=== PATIENT | female | born 1970 | race African-American/Black ===

== ENCOUNTER 2016-12-16 20:49 | Emergency (ER) | payer MEDICAID ==
[~2016-12-16] VITALS: Ht 157.5 cm; Wt 87.1 kg
[~2016-12-16 20:49] MED LIST: CEPH-37 PO; DOCU-94 PO; HYDR-1421 PO; IBU100LQ PO
[2016-12-16] MEDS ORDERED: diphenhdrAMINE HCL 25 MG CAP PO ONE ×2 (21:40→22:00)
[2016-12-17] MEDS ORDERED: diphenhdrAMINE HCL 50 MG/1 ML VL ONE (00:47)
[2016-12-17] MEDS ORDERED: methylPREDNISolone SOD SUCC 125 MG/2 ML VL ONE (00:47)
[2016-12-17] MEDS ORDERED: diphenhdrAMINE HCL 50 MG/1 ML VL IV ONE (01:00)
[2016-12-17] MEDS ORDERED: FAMOTIDINE (10MG/ML) 2ML VL IV ONE (01:00)
[2016-12-17] MEDS ORDERED: methylPREDNISolone SOD SUCC 125 MG/2 ML VL IV ONE (01:00)
[2016-12-17 01:51] LABS: Basophils # (auto) 0.1 uL; Basophils % (auto) 0.5 % (0.0-2.0); Eosinophils # (auto) 0.7 uL; Eosinophils % (auto) 6.7 % (0.0-7.0); Hemoglobin 12.6 g/dL (12.2-16.2); Lymphocytes # (auto) 2.4 uL; Lymphocytes % (auto) 23.5 % (10.0-50.0); Mean Corpuscular Hemoglobin 28.3 pg (28.0-32.0); Mean Corpuscular Hgb Conc. 32.3 g/dL (32.0-36.0); Mean Corpuscular Volume 87.7 fL (80.0-100.0); Mean Platelet Volume 9.4 fL (7.4-10.4); Monocytes # (auto) 0.9 uL; Monocytes % (auto) 8.9 % (0.0-12.0); Neutrophils # (auto) 6.1 uL; Neutrophils % (auto) 60.4 % (37.0-80.0); Platelet Count (auto) 341 10^3/uL (140-450); Red Cell Distribution Width 13.9 % (11.6-16.0); White Blood Cell 10.2 10^3/uL (4.4-10.8)
[2016-12-17 02:05] LABS: Albumin 4.1 g/dL (3.4-5.0); BUN/Creatinine Ratio 16.3; Calcium 9.1 mg/dL (8.5-10.1); Potassium 3.8 mmol/L (3.5-5.1)
[2016-12-17 02:08] LABS: Bilirubin, Total 0.4 mg/dL (0.2-1.0); Total Protein 7.9 g/dL (6.4-8.2)
[2016-12-17 02:28] LABS: Urine Bilirubin Negative (Negative); Urine Color Yellow (Yellow); Urine Glucose Normal (Normal); Urine Ketone Negative (Negative); Urine Nitrite Negative (Negative); Urine RBC 4 /hpf (0 - 4); Urine Squamous Epithelial Cell FEW /hpf (<5); Urine pH 6.5 (5.0-8.0)
[2016-12-17 02:29] LABS: Urine Blood 1+ /uL (Negative)
[2016-12-17] MEDS ORDERED: EPINEPHrine HCL 1 MG/1 ML AMP SC ONE (04:00)
[2016-12-17] MEDS ORDERED: SODIUM CHLORIDE 0.9% 1,000 ML IV ONE (04:30)
[2016-12-17 06:38] VITALS: BP 144/72
== END 2016-12-17 07:00 | disposition home or self-care (01) ==
LOC: ER 20:49
DX: T78.40XA Allergy, unspecified, initial encounter (principal); T50.905A Adverse effect of unspecified drugs, medicaments and biological substances, initial encounter; T78.3XXA Angioneurotic edema, initial encounter; H57.8 Other specified disorders of eye and adnexa; Y92.89 Other specified places as the place of occurrence of the external cause; I10 Essential (primary) hypertension
CPT/HCPCS: 36415; 80053; 81001; 85025; 96361; 96372; 96374; 96375; 99285; J0171; J1200; J2930; J3490; J7030

== ENCOUNTER 2018-05-01 15:43 | Emergency (ER) | payer MEDICAID ==
[~2018-05-01] VITALS: Ht 157.5 cm; Wt 90.3 kg
[~2018-05-01 15:43] MED LIST changes: -IBU100LQ PO; +IBUP100S11 PO
[2018-05-01 18:21] VITALS: BP 129/86
[2018-05-01] MEDS ORDERED: methylPREDNISolone SOD SUCC 125 MG/2 ML VL IM ONE (18:30)
[2018-05-01] MEDS ORDERED: diphenhdrAMINE HCL 25 MG CAP PO ONE (18:30)
== END 2018-05-01 19:23 | disposition home or self-care (01) ==
LOC: ER 15:43
DX: T65.91XA Toxic effect of unspecified substance, accidental (unintentional), initial encounter (principal); Y92.89 Other specified places as the place of occurrence of the external cause; I10 Essential (primary) hypertension; Z90.710 Acquired absence of both cervix and uterus
CPT/HCPCS: 96372; 99283; J2930

== ENCOUNTER 2019-04-03 08:37 | Emergency (ER) | payer MEDICAID ==
[~2019-04-03] VITALS: Ht 160 cm; Wt 90.7 kg
[2019-04-03 08:43] VITALS: BP 121/72
[2019-04-03] MEDS ORDERED: methylPREDNISolone SOD SUCC 125 MG/2 ML VL IM ONE (09:15)
[2019-04-03] MEDS ORDERED: diphenhdrAMINE HCL 25 MG CAP PO ONE (09:15)
== END 2019-04-03 10:00 | disposition home or self-care (01) ==
LOC: ER 08:37
DX: T78.3XXA Angioneurotic edema, initial encounter (principal); R22.0 Localized swelling, mass and lump, head; T50.905A Adverse effect of unspecified drugs, medicaments and biological substances, initial encounter; I10 Essential (primary) hypertension; Z90.49 Acquired absence of other specified parts of digestive tract; Z90.710 Acquired absence of both cervix and uterus; Z79.899 Other long term (current) drug therapy; Y92.89 Other specified places as the place of occurrence of the external cause
CPT/HCPCS: 96372; 99283; J2930

== ENCOUNTER 2023-11-06 01:02 | Emergency (ER) | payer MEDICAID ==
[~2023-11-06] VITALS: Ht 154.9 cm; Wt 104.3 kg
[2023-11-06] MEDS: diphenhdrAMINE HCL 50 MG/1 ML VL IM ONE (05:56)
[2023-11-06 06:01] VITALS: BP 159/107; PULSE 77; RESP 18; TEMP 98.1; O2SAT 100
[2023-11-06] MEDS ORDERED: DIPH25CA66 PO (06:42)
[2023-11-06] MEDS ORDERED: PRED20TA2 PO (06:42)
[2023-11-06] MEDS ORDERED: FAMO20TA10 PO (06:42)
[2023-11-06] MEDS: DexAMETHasone SOD PHOS 10MG/1ML VIAL INJ IM ONE (06:55)
== END 2023-11-06 07:27 | disposition home or self-care (01) ==
LOC: ER 01:02
DX: T78.49XA Other allergy, initial encounter (principal); I10 Essential (primary) hypertension; Z98.890 Other specified postprocedural states; Z79.899 Other long term (current) drug therapy; X58.XXXA Exposure to other specified factors, initial encounter
CPT/HCPCS: 96372; 99284; J1100; J1200

== ENCOUNTER 2024-03-19 15:29 | Emergency (ER) | payer MEDICAID ==
[~2024-03-19] VITALS: Ht 5.1 cm; Wt 101.4 kg
[~2024-03-19 15:29] MED LIST changes: +DIPH25CA66 PO; +FAMO20TA10 PO; +PRED20TA2 PO
[2024-03-19 17:01] LABS: Basophils # (auto) 0.1 10 ^3/uL (0-0.2); Basophils % (auto) 1.1 % (0.0-2.0); Eosinophils # (auto) 0.1 10 ^3/uL (0-0.8); Eosinophils % (auto) 2.8 % (0.0-7.0); Hematocrit 40.1 % (36.0-46.0); Hemoglobin 13.3 g/dL (12.2-16.2); Lymphocytes # (auto) 1.8 10 ^3/uL (0.4-5.4); Lymphocytes % (auto) 39.3 % (10.0-50.0); Mean Corpuscular Hgb Conc. 33.3 g/dL (32.0-36.0); Mean Corpuscular Volume 87.2 fL (80.0-100.0); Monocytes # (auto) 0.5 10 ^3/uL (0-1.3); Monocytes % (auto) 11.8 % (0.0-12.0); Neutrophils # (auto) 2.1 10 ^3/uL (1.6-8.6); Nucleated Red Blood Cells % 0.1 %; Red Blood Cells 4.59 10^6/uL (4.0-5.20); Red Cell Distribution Width 13.9 % (11.8-14.3); White Blood Cell 4.6 10^3/uL (4.4-10.8)
[2024-03-19 17:16] LABS: Chloride 105 mmol/L (98-107); Potassium 3.7 mmol/L (3.5-5.1); Sodium 138 mmol/L (136-145)
[2024-03-19 17:17] LABS: Anion Gap 10 (5-15); Calcium 10.6 mg/dL (8.5-10.1); Carbon Dioxide 23 mmol/L (20-30)
[2024-03-19 17:22] LABS: BUN/Creatinine Ratio 10.3 (10.0-20.0); Blood Urea Nitrogen 9 mg/dL (9-23); Glucose 95 mg/dL (74-106)
[2024-03-19] MEDS: MECLIZINE HCL 25 MG TAB PO ONE (17:28)
[2024-03-19 17:29] VITALS: BP 119/73; PULSE 78; RESP 17; TEMP 98.9; O2SAT 99
[2024-03-19] MEDS ORDERED: MECL25CH85 PO (18:35)
== END 2024-03-19 18:48 | disposition home or self-care (01) ==
LOC: ER 15:29
DX: R42 Dizziness and giddiness (principal); E11.9 Type 2 diabetes mellitus without complications; I10 Essential (primary) hypertension; Z90.49 Acquired absence of other specified parts of digestive tract; Z90.710 Acquired absence of both cervix and uterus
CPT/HCPCS: 36415; 80048; 82962; 85025; 93005; 99284; J8597

== ENCOUNTER 2025-01-22 04:00 | Emergency (ER) | payer MEDICAID ==
[~2025-01-22] VITALS: Ht 154.9 cm; Wt 101.2 kg
[~2025-01-22 04:00] MED LIST changes: +MECL25CH85 PO
[2025-01-22 04:59] LABS: Urine Bacteria None Seen /hpf (None Seen)
[2025-01-22 05:34] LABS: Urine Amorphous Crystal FEW /hpf (None Seen); Urine Blood 1+ /uL (Negative); Urine Clarity Turbid (Clear); Urine Color Colorless (Yellow); Urine Protein, UAD Negative (Negative); Urine Specific Gravity 1.014 (1.001-1.035); Urine Squamous Epithelial Cell None Seen /hpf (<5); Urine Urobilinogen Normal (Negative); Urine WBC 1 /HPF (0-5)
--- NOTE | 2025-01-22 06:45 | ED.PDOC ---
History of Present Illness HPI Comments 54-year-old female with PMHx DM, HTN presents with a chief complaint of abdominal pain, nausea, and vomiting. Patient states that her pain is localized to her epigastric region, nonradiating, describes as sharp, and rates her pain a 5/10. Patient mentions that she ate Lobster for dinner last night prior to onset of symptoms starting. Patient denies any diarrhea, rectal bleeding, or hematemesis. No other symptoms or modifying factors present at this time. Chief Complaint: Abdominal Pain Time Seen by MD: 06:22 Primary Care Provider: BRETT Castellanos Notes: Medications, Allergies Allergies: Coded Allergies: NO KNOWN ALLERGIES (Unverified , 06/05/13) Home Meds Active Scripts Ondansetron Odt 4MG Tab (ZOFRAN PO) 4 Mg Tb, 4 MG PO DAILY for 5 Days, #5 TAB ODT TAB-DISSOLVE IN MOUTH, THEN SWALLOW Prov:SOCRATES ANAYA MD 01/22/25 Meclizine HCl (Antivert) 25 Mg Chw, 25 MG PO BID for 5 Days, #10 TAB.CHEW Prov:ROMINA TAVERA MD 03/19/24 Diphenhydramine Hcl (Benadryl Allergy) 25 Mg Cap, 50 MG PO Q6HPRN PRN, #30 CAP Prov:REINA YU FUEL OPERATOR 11/06/23 Famotidine (PEPCID TABLET) 20 Mg Tb, 40 MG PO DAILY for 7 Days, #14 TAB Prov:REINA YU FUEL OPERATOR 11/06/23 Prednisone (Prednisone) 20 Mg Tab, 60 MG PO DAILY for 5 Days, #15 TAB Prov:REINA YU 11/06/23 Cephalexin (Keflex) 500 Mg Cap, 500 MG PO QID, #40 Prov:SARAH PASTOR DO 07/05/13 Docusate Sodium (Colace) 100 Mg Cap, 100 MG PO BID, #60 Prov:SARAH PASTOR DO 07/05/13 Ibuprofen (Motrin) 100 Mg/5 Ml Ud, 800 MG PO TIDP, #60 Prov:SARAH PASTOR DO 07/05/13 Reported Medications Hydrocodone-Acetaminophen (Vicodin) 1 Tab Tab, 1 - 2 TAB PO Q6HP, #60 07/05/13 Information Source: Patient Mode of Arrival: Ambulatory Severity: Moderate Timing: Hours Duration: Since onset Prehospital treatment: None Past Medical History PAST MEDICAL HISTORY: DM, HTN Surgical History: Cholecystectomy, , Hysterectomy [employer]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 Pertinent [place] LAYER History Family History Family History: Family hx of HTN Social History Smoker: Non-Smoker Alcohol: Denies ETOH Use Drugs: Denies Drug Use Lives In: Home Constitutional: denies: chills, diaphoresis, fatigue, fever, malaise, sweats, weakness, others EENTM: denies: blurred vision, double vision, ear bleeding, ear discharge, ear drainage, ear pain, ear ringing, eye pain, eye redness, hearing loss, mouth pain, mouth swelling, nasal discharge, nose bleeding, nose congestion, nose pain, photophobia, tearing, throat pain, throat swelling, voice changes, others Respiratory: denies: cough, hemoptysis, orthopnea, SOB at rest, shortness of breath, SOB with excertion, stridor, wheezing, others Cardiovascular: denies: chest pain, dizzy spells, diaphoresis, Dyspnea on exertion, edema, irregular heart beat, left arm pain, lightheadedness, palpitations, PND, syncope, others Gastrointestinal: reports: abdominal pain, nausea, vomiting; denies: abdomen distended, blood streaked bowels, constipated, diarrhea, dysphagia, difficulty swallowing, hematemesis, melena, poor appetite, poor fluid intake, rectal bleeding, rectal pain, others Genitourinary: denies: abnormal vagina bleeding, burning, dyspareunia, dysuria, flank pain, frequency, hematuria, incontinence, pain, , vagina discharge, urgency, others Neurological: denies: dizziness, fainting, headache, left sided numbness, left sided weakness, numbness, paresthesia, pre-existing deficit, right sided numbness, right sided weakness, seizure, speech problems, tingling, tremors, weakness, others Musculoskeletal: denies: back pain, gout, joint pain, joint swelling, muscle pain, muscle stiffness, neck pain, others Integumetry: denies: bruises, change in color, change in hair/nails, dryness, laceration, lesions, lumps, rash, wounds, others Allergic/Immunocompromised: denies: Difficulty Healing, Frequent Infections, Hives, Itching, others Hematologic/Lymphatic: denies: anemia, blood clots, easy bleeding, easy bruising, swollen glands, others Endocrine: denies: excessive hunger, excessive sweating, excessive thirst, excessive urination, flushing, intolerance to cold, intolerance to heat, u nexplained weight gain, unexplained weight loss, others Psychiatric: denies: anxiety, bipolar disorder, depression, hopeless, panic disorder, schizophrenia, sleepless, suicidal, others All Other Systems: Reviewed and Negative Physical Exam General Appearance: Moderate Distress, Normal HEENT: Normal ENT Inspection, Pharynx Normal, TMs Normal Neck: Full Range of Motion, Non-Tender, Normal, Normal Inspection Respiratory: Chest Non-Tender, Lungs Clear, No Accessory Muscle Use, No Respiratory Distress, Normal Breath Sounds Cardiovascular: No Edema, No JVD, No Murmur, No Gallop, Normal Peripheral Puls es, Regular Rate/Rhythm Breast Exam: Deferred Gastrointestinal: No Organomegaly, Non Tender, No Pulsatile Mass, Normal Bowel Sounds, Soft Genitalia: Deferred Pelvic: Deferred Rectal: Deferred Extremities: No calf tenderness, Normal capillary refill, Normal inspection, Normal range of motion, Non-tender, No pedal edema Musculoskeletal : Apperance: Normal Neurologic: Alert, watch commander II-XII nml as Tested, No Motor Deficits, Normal Affect, Normal Mood, No Sensory Deficits Cerebellar Function: Normal Reflexes: Normal Skin: Dry, Normal Color, Warm Peripheral Pulses: 3+ Radial (R), 3+ Radial (L) Lymphatic: No Adenopathy Was a procedure done? Was a procedure done?: No Differential Dx Considerations may include: Gastroenteritis Electrolyte imbalance X-Ray, Labs, Meds, VS Vital Signs Date Time Temp Pulse Resp B/P (MAP) Pulse Ox O2 Delivery O2 Flow Rate FiO2 01/22/25 08:28 98.6 99 15 162/88 (112) 97 98.6 01/22/25 06:20 99.1 77 16 130/63 (85) 100 99.1 01/22/25 04:14 98.5 74 16 173/98 (123) 100 98.5 Lab Test 01/22/25 07:23 01/22/25 04:58 Range/Units White Blood Count 9.0 4.4-10.8 10^3/uL Red Blood Count 4.54 4.0-5.20 10^6/uL Hemoglobin 13.1 12.2-16.2 g/dL Hematocrit 39.3 36.0-46.0 % Mean Corpuscular Volume 86.5 80.0-100.0 fL Mean Corpuscular Hemoglobin 28.9 28.0-32.0 pg Mean Corpuscular Hemoglobin Concent 33.4 32.0-36.0 g/dL Red Cell Distribution Width 13.4 11.8-14.3 % Platelet Count 267 140-450 10^3/uL Mean Platelet Volume 8.9 6.9-10.8 fL Neutrophils (%) (Auto) 79.3 37.0-80.0 % Lymphocytes (%) (Auto) 13.9 10.0-50.0 % Monocytes (%) (Auto) 5.5 0.0-12.0 % Eosinophils (%) (Auto) 0.5 0.0-7.0 % Basophils (%) (Auto) 0.8 0.0-2.0 % Neutrophils # (Auto) 7.1 1.6-8.6 10 ^3/uL Lymphocytes # (Auto) 1.2 0.4-5.4 10 ^3/uL Monocytes # (Auto) 0.5 0-1.3 10 ^3/uL Eosinophils # (Auto) 0 0-0.8 10 ^3/uL Basophils # (Auto) 0.1 0-0.2 10 ^3/uL Nucleated Red Blood Cells 0.1 % Sodium Level 140 136-145 mmol/L Potassium Level 4.0 3.5-5.1 mmol/L Chloride Level 104 98-107 mmol/L Carbon Dioxide Level 27 20-31 mmol/L Anion Gap 9 5-15 Blood Urea Nitrogen 9 9-23 mg/dL Creatinine 0.75 0.550-1.02 mg/dL Glomerular Filtration Rate Calc 95 >90 mL/min BUN/Creatinine Ratio 12.0 10.0-20.0 Serum Glucose 117 H 74-106 mg/dL Calcium Level 11.2 H 8.7-10.4 mg/dL Urine Color Colorless Yellow Urine Clarity Turbid H Clear Urine pH 8.0 5.0-9.0 Urine Specific [place] 1.014 1.001-1.035 Urine Protein Negative Negative Urine Ketones Negative Negative Urine Blood 1+ H Negative /uL Urine Nitrite Negative Negative Urine Bilirubin Negative Negative Urine Urobilinogen Normal Negative mg/dL Urine Leukocyte Esterase Negative Negative /uL Urine RBC 10 0 - 4 /hpf Urine Microscopic WBC 1 0-5 /HPF Urine Squamous Epithelial Cells None seen <5 /hpf Urine Amorphous Crystals Few None Seen /hpf Urine Bacteria None seen None Seen /hpf Urine Glucose Normal Normal mg/dL Patient alert. No sign of any distress. Vitals stable. Answering questions. Abdomen is soft nontender. Heart rate within normal limits. Saturation pristine on room air. Urinalysis does not show any acute process. WBC within normal limits. Hemoglobin within normal limits. Urinalysis within normal limits. She was given prescription of Zofran. Explained to the patient that possibly her food especially the seafood she might have caused her to have GI symptoms. Was told to follow up with her primary care physician. Was told to come back if there is any problem. Time of 1ST Reevaluation: 06:52 (EXPLAINED TO THE PATIENT THAT THEY MAY BE STAYING WITH US IN THE HOSPITAL, BUT IF STABLE FOR DISCHARGE HOME, THEY WILL BE NOTIFIED. ) Reevaluation 1ST: Improved Patient Education/Counseling: Diagnosis, Treatment Family Education/Counseling: No Family Present Additional Information The following tests were ordered, and results were reviewed by me: I reviewed and agreed with the following test results read by other providers: I discussed treatment and results with medical personnel and: Patient Comprehensive systems review obtained and negative except for what is stated in the HPI. Departure 1 Departure Time of Disposition: 07:22 Impression: Primary Impression: Gastroenteritis Disposition: 01 HOME / SELF CARE / HOMELESS Condition: Good e-Prescriptions Ondansetron Odt 4MG Tab (ZOFRAN PO) 4 Mg Tb 4 MG PO DAILY for 5 Days, #5 TAB ODT TAB-DISSOLVE IN MOUTH, THEN SWALLOW Prov: SOCRATES ANAYA MD 01/22/25 Discharged With: Self Critical Care Note Critical Care Time?: No Stability Stability form required: No Heart Score Heart Score: Heart Score Response (Comments) Value History N/A 0 EKG N/A 0 Age N/A 0 Risk Factors N/A 0 Troponin N/A 0 Total 0 I personally scribed for SOCRATES ANAYA MD ([email or web address]) on 01/22/25 at 06:45. Electronically submitted by Hiro Wilson ([email or web address]). SOCRATES ANAYA MD January 22, 2025 06:45
[2025-01-22] MEDS ORDERED: ZOFR4T PO (07:23)
[2025-01-22 07:50] LABS: Basophils # (auto) 0.1 10 ^3/uL (0-0.2); Basophils % (auto) 0.8 % (0.0-2.0); Eosinophils # (auto) 0 10 ^3/uL (0-0.8); Eosinophils % (auto) 0.5 % (0.0-7.0); Hematocrit 39.3 % (36.0-46.0); Hemoglobin 13.1 g/dL (12.2-16.2); Lymphocytes # (auto) 1.2 10 ^3/uL (0.4-5.4); Lymphocytes % (auto) 13.9 % (10.0-50.0); Mean Corpuscular Hemoglobin 28.9 pg (28.0-32.0); Mean Corpuscular Hgb Conc. 33.4 g/dL (32.0-36.0); Mean Corpuscular Volume 86.5 fL (80.0-100.0); Monocytes # (auto) 0.5 10 ^3/uL (0-1.3); Monocytes % (auto) 5.5 % (0.0-12.0); Neutrophils # (auto) 7.1 10 ^3/uL (1.6-8.6); Neutrophils % (auto) 79.3 % (37.0-80.0); Nucleated Red Blood Cells % 0.1 %; Platelet Count (auto) 267 10^3/uL (140-450); Red Blood Cells 4.54 10^6/uL (4.0-5.20); Red Cell Distribution Width 13.4 % (11.8-14.3)
[2025-01-22 07:57] LABS: Chloride 104 mmol/L (98-107); Sodium 140 mmol/L (136-145)
[2025-01-22 07:58] LABS: Anion Gap 9 (5-15); Carbon Dioxide 27 mmol/L (20-31)
[2025-01-22 08:04] LABS: Blood Urea Nitrogen 9 mg/dL (9-23); Calcium 11.2 mg/dL (8.7-10.4); Glucose 117 mg/dL (74-106)
[2025-01-22 08:28] VITALS: BP 162/88; PULSE 99; TEMP 98.6
[2025-01-22 08:56] VITALS: RESP 18; O2SAT 98
== END 2025-01-22 08:56 | disposition home or self-care (01) ==
LOC: ER 04:00
DX: K52.9 Noninfective gastroenteritis and colitis, unspecified (principal); E11.9 Type 2 diabetes mellitus without complications; I10 Essential (primary) hypertension; Z90.49 Acquired absence of other specified parts of digestive tract; Z90.710 Acquired absence of both cervix and uterus; Z79.52 Long term (current) use of systemic steroids; Z79.899 Other long term (current) drug therapy
CPT/HCPCS: 36415; 80048; 81001; 85025

== ENCOUNTER 2025-06-13 09:24 | Emergency (ER) | payer MEDICAID ==
[~2025-06-13] VITALS: Ht 154.9 cm; Wt 93.6 kg
[~2025-06-13 09:24] MED LIST changes: +ZOFR4T PO
[2025-06-13 09:25] VITALS: BP 165/76; RESP 20; TEMP 97.1; O2SAT 97
[2025-06-13 09:33] VITALS: PULSE 62
--- NOTE | 2025-06-13 09:50 | ED.PDOC ---
GI ASSESSMENT HPI Comments A 54 YEAR OLD FEMALE PRESENTS TO THE ED WITH COMPLAINT OF LEFT-SIDED ABDOMINAL PAIN WITH N/V. PATIENT STATES SHE HAS BEEN EXPERIENCING LEFT-SIDED ABDOMINAL PAIN OFF AND ON FOR THE PAST 2 MONTHS WITH WORSENING PAIN AND NAUSEA AND VOMITING THAT STARTED TODAY. PATIENT DENIES DYSURIA, HEMATURIA, FLANK PAIN, FEVER, CHILLS, SHORTNESS OF BREATH, CHEST PAIN, HEADACHE, OR OTHER COMPLAINTS. NO OTHER SYMPTOMS OR MODIFYING FACTORS AT THIS TIME. PATIENT IS ALERT, ORIENTED X 4, AND HAS STEADY GAIT. Chief Complaint: Abdominal Pain Time Seen by MD: 09:26 Primary Care Provider: BRETT Reviewed Notes: Nurses Notes, Medications, Allergies Allergies: Coded Allergies: NO KNOWN ALLERGIES (Unverified , 06/05/13) Home Meds Active Scripts Ondansetron Odt 4MG Tab (ZOFRAN PO) 4 Mg Tb, 4 MG PO BID, #14 TAB ODT TAB-DISSOLVE IN MOUTH, THEN SWALLOW Prov:PEDRO VERDUGO 06/13/25 Ibuprofen (Ibuprofen) 800 Mg Tab, 1 TAB PO TID, #30 TAB Prov:PEDRO VERDUGO 06/13/25 Ondansetron Odt 4MG Tab (ZOFRAN PO) 4 Mg Tb, 4 MG PO DAILY for 5 Days, #5 TAB ODT TAB-DISSOLVE IN MOUTH, THEN SWALLOW Prov:SOCRATES ANAYA MD 01/22/25 Meclizine HCl (Antivert) 25 Mg Chw, 25 MG PO BID for 5 Days, #10 TAB.CHEW Prov:ROMINA TAVERA MD 03/19/24 Diphenhydramine Hcl (Benadryl Allergy) 25 Mg Cap, 50 MG PO Q6HPRN PRN, #30 CAP Prov:REINA YU DRIVE TESTER 11/06/23 Famotidine (PEPCID TABLET) 20 Mg Tb, 40 MG PO DAILY for 7 Days, #14 TAB Prov:REINA YU DRIVE TESTER 11/06/23 Prednisone (Prednisone) 20 Mg Tab, 60 MG PO DAILY for 5 Days, #15 TAB Prov:REINA YU DRIVE TESTER 11/06/23 Cephalexin (Keflex) 500 Mg Cap, 500 MG PO QID, #40 Prov:SARAH PASTOR DO 07/05/13 Docusate Sodium (Colace) 100 Mg Cap, 100 MG PO BID, #60 Prov:SARHA PASTOR 07/05/13 Ibuprofen (Motrin) 100 Mg/5 Ml Ud, 800 MG PO TIDP, #60 Prov:SARAH PASTOR DO 07/05/13 Reported Medications Hydrocodone-Acetaminophen (Vicodin) 1 Tab Tab, 1 - 2 TAB PO Q6HP, #60 07/05/13 Information Source: Patient Mode of Arrival: Ambulatory Timing: Months Duration: Intermittent, Days Prehospital treatment: None Quality: Aching, Cramping Vomitus: Food Particles Stool: Normal Severity: Moderate Recent: None Recent Hx of: None Pain Location: LUQ, LLQ Modifying Factors: Nothing Associated sign and symptoms: Nausea, Vomiting, Abdominal Pain Past Medical History PAST MEDICAL HISTORY: DM, HTN Surgical History: Cholecystectomy, , Hysterectomy 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 Pertinent [employer]ACH[employer] ACCESSORIES ATTACHER History Family History Family History: Family hx of HTN Social History Smoker: Non-Smoker Alcohol: Denies ETOH Use Drugs: Denies Drug Use Lives In: Home Constitutional: reports: others (ANXIOUS ); denies: chills, diaphoresis, fatig ue, fever, malaise, sweats, weakness EENTM: denies: blurred vision, double vision, ear bleeding, ear discharge, ear drainage, ear pain, ear ringing, eye pain, eye redness, hearing loss, mouth pain, mouth swelling, nasal discharge, nose bleeding, nose congestion, nose pain, photophobia, tearing, throat pain, throat swelling, voice changes, others Respiratory: denies: cough, hemoptysis, orthopnea, SOB at rest, shortness of breath, SOB with excertion, stridor, wheezing, others Cardiovascular: denies: chest pain, dizzy spells, diaphoresis, Dyspnea on exertion, edema, irregular heart beat, left arm pain, lightheadedness, palpitations, PND, syncope, others Gastrointestinal: reports: abdominal pain, nausea, vomiting; denies: abdomen distended, blood streaked bowels, constipated, diarrhea, dysphagia, difficulty swallowing, hematemesis, melena, poor appetite, poor fluid intake, rectal bleeding, rectal pain, others Genitourinary: denies: abnormal vagina bleeding, burning, dyspareunia, dysuria, flank pain, frequency, hematuria, incontinence, pain, , vagina discharge, urgency, others Neurological: denies: dizziness, fainting, headache, left sided numbness, left sided weakness, numbness, paresthesia, pre-existing deficit, right sided numbness, right sided weakness, seizure, speech problems, tingling, tremors, weakness, others Musculoskeletal: denies: back pain, gout, joint pain, joint swelling, muscle pain, muscle stiffness, neck pain, others Integumetry: denies: bruises, change in color, change in hair/nails, dryness, laceration, lesions, lumps, rash, wounds, others Allergic/Immunocompromised: denies: Difficulty Healing, Frequent Infections, Hives, Itching, others Hematologic/Lymphatic: denies: anemia, blood clots, easy bleeding, easy brui sing, swollen glands, others Endocrine: denies: excessive hunger, excessive sweating, excessive thirst, ex cessive urination, flushing, intolerance to cold, intolerance to heat, unexplained weight gain, unexplained weight loss, others Psychiatric: reports: anxiety; denies: bipolar disorder, depression, hopeless, panic disorder, schizophrenia, sleepless, suicidal, others All Other Systems: Reviewed and Negative Physical Exam General Appearance: No Apparent Distress, Obese, Other (ANXIOUS ) HEENT: Normal ENT Inspection, PERRL/EOMI, Pharynx Normal, TMs Normal Neck: Full Range of Motion, Non-Tender, Normal, Normal Inspection Respiratory: Chest Non-Tender, Lungs Clear, No Accessory Muscle Use, No Respiratory Distress, Normal Breath Sounds Cardiovascular: No Edema, No JVD, No Murmur, No Gallop, Normal Peripheral Pulses, Regular Rate/Rhythm Breast Exam: Deferred Gastrointestinal: LLQ, LUQ, No Organomegaly, No Pulsatile Mass, Normal Bowel Sounds, Soft, Tenderness (LEFT SIDE ABD, NO GUARDING AND REBOUND TENDERNESS. ) Genitalia: Deferred Pelvic: Normal External Exam Rectal: Deferred Extremities: No calf tenderness, Normal capillary refill, Normal inspection, Normal range of motion, Non-tender, No pedal edema Musculoskeletal : Apperance: Normal Neurologic: Alert, school occupational therapist II-XII nml as Tested, No Motor Deficits, Normal Affect, Normal Mood, No Sensory Deficits Cerebellar Function: Normal Reflexes: Normal Skin: Dry, Normal Color, Warm Peripheral Pulses: 2+ carotid (R), 2+ carotid (L), 2+ dorsalis pedis (R), 2+ dorsalis pedis (L) Lymphatic: No Adenopathy Was a procedure done? Was a procedure done?: No GI differential Dx Differential Diagnosis: Bowel Obstruction, Constipation, Diverticular disease, Gastritis/PUD, Gastroenteritis, Pancreatitis, UTI, Dehydration, Electrolyte Imbalance, Kidney Stone X-Ray, Labs, Meds, VS Vital Signs Date Time Temp Pulse Resp B/P (MAP) Pulse Ox O2 Delivery O2 Flow Rate FiO2 06/13/25 09:33 62 06/13/25 09:25 97.1 71 20 165/76 97 97.1 Lab Test 06/13/25 09:48 Range/Units White Blood Count 7.8 4.4-10.8 10^3/uL Red Blood Count 4.43 4.0-5.20 10^6/uL Hemoglobin 12.7 12.2-16.2 g/dL Hematocrit 38.8 36.0-46.0 % Mean Corpuscular Volume 87.6 80.0-100.0 fL Mean Corpuscular Hemoglobin 28.6 28.0-32.0 pg Mean Corpuscular Hemoglobin Concent 32.6 32.0-36.0 g/dL Red Cell Distribution Width 13.5 11.8-14.3 % Platelet Count 289 140-450 10^3/uL Mean Platelet Volume 9.2 6.9-10.8 fL Neutrophils (%) (Auto) 72.2 37.0-80.0 % Lymphocytes (%) (Auto) 21.0 10.0-50.0 % Monocytes (%) (Auto) 5.3 0.0-12.0 % Eosinophils (%) (Auto) 0.6 0.0-7.0 % Basophils (%) (Auto) 0.9 0.0-2.0 % Neutrophils # (Auto) 5.6 1.6-8.6 10 ^3/uL Lymphocytes # (Auto) 1.6 0.4-5.4 10 ^3/uL Monocytes # (Auto) 0.4 0-1.3 10 ^3/uL Eosinophils # (Auto) 0 0-0.8 10 ^3/uL Basophils # (Auto) 0.1 0-0.2 10 ^3/uL Nucleated Red Blood Cells 0.0 % Sodium Level 140 136-145 mmol/L Potassium Level 3.7 3.5-5.1 mmol/L Chloride Level 105 98-107 mmol/L Carbon Dioxide Level 23 20-31 mmol/L Anion Gap 12 5-15 Blood Urea Nitrogen 11 9-23 mg/dL Creatinine 0.79 0.550-1.02 mg/dL Glomerular Filtration Rate Calc 89 >90 mL/min BUN/Creatinine Ratio 13.9 10.0-20.0 Serum Glucose 109 H 74-106 mg/dL Calcium Level 10.2 8.7-10.4 mg/dL Total Bilirubin 0.4 0.2-1.0 mg/dL Aspartate Amino Transferase (AST) 14 13-40 U/L Alanine Aminotransferase (ALT) 15 7-40 U/L Alkaline Phosphatase 106 46-116 U/L Total Protein 8.0 5.7-8.2 g/dL Albumin 4.8 3.2-4.8 g/dL Lipase 36 12-53 U/L Plasma/Serum Blood Alcohol 3.0 <10 mg/dL CLINICAL INFORMATION: Left-sided abdominal pain with nausea and vomiting. TECHNIQUE: Axial CT images of the abdomen and pelvis were obtained without IV contrast. Coronal and sagittal reformatted images were obtained, reviewed, and stored. Evaluation of the parenchymal organs is limited without IV contrast. Evaluation of the bowel and mesentery is limited without oral contrast. All CT scans at this medical facility are performed using dose modulation techniques as appropriate to a performed exam including the following: Automated exposure control was utilized; adjustment of the MA and/or KV according to patient size; and use of iterative reconstruction technique. CTDIvol = 23.34 mGy DLP = 1160.93 mGy-cm COMPARISON: None FINDINGS: Lung bases: Lung bases are clear. Liver: Grossly unremarkable in its noncontrast enhanced appearance. No abnormal density or focal lesion identified. Biliary: Multiple calcified gallstones in the gallbladder, with the largest at the gallbladder neck measuring up to 3 cm. Spleen: Unremarkable. Pancreas: Moderate fatty changes in the pancreas. Adrenal glands: Adrenal glands are thickened bilaterally, likely due to hyperplasia. No definite nodule visualized. Kidneys: No hydronephrosis. No renal or ureteral calculi. Aorta/Vascular: No aneurysm or significant calcification. Lymph nodes: No mass or lymphadenopathy. Bowel/mesentery: No small bowel obstruction. No free air or free fluid. Appendix is visualized and appears unremarkable. Scattered colonic diverticula without adjacent inflammatory changes to suggest diverticulitis. Pelvic organs: Grossly unremarkable. Bladder: Unremarkable. No mass. Abdominal wall: No mass or hernia. Bones: No acute fracture or suspicious intraosseous lesion. IMPRESSION: 1. Cholelithiasis. 2. Scattered colonic diverticula without adjacent inflammatory changes to suggest diverticulitis. 3. No hydronephrosis and no renal or ureteral calculi. 4. Additional nonacute findings as described above. ATED BY: WALTER BUNDY DO DICTATED DATE/TIME: 06/13/251038 SIGNED BY: WALTER BUNDY DO SIGNED DATE/TIME: 06/13/251038 CC: X-Ray, Labs, Meds, VS Comment EXTERNAL MEDICAL RECORDS REVIEWED: [NONE] INDEPENDENT HISTORIANS: [NONE] SOCIAL DETERMINANTS OF HEALTH: [NONE] LABS ORDERED: CBC, CMP, LIPASE, UA, BLOOD ETOH REVIEWED AND INTERPRETED RESULTS: NORMAL IMAGING ORDERED: CT ABD/PEL TREATMENTS ORDERED: TORADOL 60 MG IM AND ZOFRAN 4MG ODT PROCEDURES PERFORMED: NONE CRITICAL CARE TIME: NONE I HAVE DISCUSSED THE PATIENT WITH THE ATTENDING PHYSICIAN DR. TAVERA AND HE AGREES WITH THE PATIENT'S PLAN OF CARE AND DISPOSITION. BASED ON HISTORY OF PRESENT ILLNESS, AND PHYSICAL EXAM, PATIENT WILL BE DISCHARGED HOME. DISCUSSED PLAN FOR DISCHARGE HOME WITH RX [IBUPROFEN 800MG AND ZOFRAN 4 MG]. MEDICATION WARNINGS GIVEN. SHARED DECISION MAKING: PATIENT INSTRUCTED TO FOLLOW UP WITH PRIMARY CARE PROVIDER IN 1-2 DAYS FOR RE-EVALUATION OF SYMPTOMS. PATIENT VERBALIZES UNDERSTANDING TO RETURN TO ED FOR NEW OR WORSENING SYMPTOMS OR IF FOLLOW UP WITH PCP CANNOT BE OBTAINED. PATIENT FEELS COMFORTABLE GOING HOME AT THIS TIME. ALL QUESTIONS ADDRESSED AT TIME OF DISCHARGE. Images Reviewed?: Images reviewed and evaluated by me Time of 1ST Reevaluation: 11:30 Reevaluation 1ST: Improved Patient Education/Counseling: Diagnosis, Treatment, Need For Follow Up Family Education/Counseling: Diagnosis, Treatment, Need For Follow Up Medical Screening: No EMC Exist At This Time SEPSIS Sepsis Screen Date sepsis recognized/suspect: Jun 13, 2025 Time Sepsis recognized/suspect: 09 Recent Procedure: No On Antibiotic Therapy: No Respiratory Rate >20: No Heart Rate >90: No Temp<36 C (96.8 F) or >38.3 C: No SBP <90 or MAP <65 mmHG: No New Acute Mental Status Change: No Is the patient on CPAP, BIPAP,: No Physician Orders Urinalysis (06/13/25 09:29) Electrocardigram (06/13/25 09:42) Ct Ab Pel Wo Con-No Oral Or Iv (06/13/25 09:46) Drug Screen (06/13/25 09:50) Ondansetron Po (Zofran Po) (06/13/25 11:15) Vital Signs Date Time Temp Pulse Resp B/P (MAP) Pulse Ox O2 Delivery O2 Flow Rate FiO2 06/13/25 09:33 62 06/13/25 09:25 97.1 71 20 165/76 97 97.1 Laboratory Tests Test 06/13/25 09:48 White Blood Count 7.8 10^3/uL (4.4-10.8) Departure 1 Departure Time of Disposition: 11:30 Impression: Primary Impression: Cholelithiasis Qualified Codes: K80.20 - Calculus of gallbladder without cholecystitis without obstruction Disposition: HOME / SELF CARE / HOMELESS Condition: Other Additional Instructions: FOLLOW-UP WITH PCP IN 1 TO 2 DAYS. TAKE MEDICATIONS PRESCRIBED. RETURN TO ED FOR ANY NEW OR WORSENING SYMPTOMS. e-Prescriptions Ondansetron Odt 4MG Tab (ZOFRAN PO) 4 Mg Tb 4 MG PO BID, #14 TAB ODT TAB-DISSOLVE IN MOUTH, THEN SWALLOW Prov: PEDRO VERDUGO 06/13/25 Ibuprofen (Ibuprofen) 800 Mg Tab 1 TAB PO TID, #30 TAB Prov: PEDRO VERDUGO 06/13/25 Discharged With: Self Critical Care Note Critical Care Time?: No Stability Stability form required: No I personally scribed for PEDRO VERDUGO ([email or web address]) on 06/13/25 at 09:50. Electronically submitted by Dylan Richardson ([email or web address]). I personally scribed for PEDRO VERDUGO ([email or web address]) on 06/13/25 at 10:44. Electronically submitted by Dylan Richardson ([email or web address]). I personally scribed for PEDRO VERDUGO ([email or web address]) on 06/13/25 at 11:02. Electronically submitted by Dylan Richardson ([email or web address]). PEDRO VERDUGO Jun 13, 2025 09:50
[2025-06-13 10:28] LABS: Hematocrit 38.8 % (36.0-46.0); Hemoglobin 12.7 g/dL (12.2-16.2); Mean Corpuscular Hemoglobin 28.6 pg (28.0-32.0); Mean Corpuscular Volume 87.6 fL (80.0-100.0); Nucleated Red Blood Cells % 0.0 %
--- NOTE | 2025-06-13 10:41 | DVH ---
CLINICAL INFORMATION: Left-sided abdominal pain with nausea and vomiting. TECHNIQUE: Axial CT images of the abdomen and pelvis were obtained without IV contrast. Coronal and s agittal reformatted images were obtained, reviewed, and stored. Evaluation of the parenchymal organs is limited without IV contrast. Evaluation of the bowel and mesentery is limited without oral contras t. All CT scans at this medical facility are performed using dose modulation techniques as appropriat e to a performed exam including the following: Automated exposure control was utilized; adjustment of the MA and/or KV according to patient size; and use of iterative reconstruction technique. CTDIvol = 23.34 mGy DLP = 1160.93 mGy-cm COMPARISON: None FINDINGS: Lung bases: Lung bases are clear. Liver: Grossly unremarkable in its noncontrast enhanced appearance. No abnormal density or focal lesi on identified. Biliary: Multiple calcified gallstones in the gallbladder, with the largest at the gallbladder neck m easuring up to 3 cm. Spleen: Unremarkable. Pancreas: Moderate fatty changes in the pancreas. Adrenal glands: Adrenal glands are thickened bilaterally, likely due to hyperplasia. No definite nodu le visualized. Kidneys: No hydronephrosis. No renal or ureteral calculi. Aorta/Vascular: No aneurysm or significant calcification. Lymph nodes: No mass or lymphadenopathy. Bowel/mesentery: No small bowel obstruction. No free air or free fluid. Appendix is visualized and ap pears unremarkable. Scattered colonic diverticula without adjacent inflammatory changes to suggest d iverticulitis. Pelvic organs: Grossly unremarkable. Bladder: Unremarkable. No mass. Abdominal wall: No mass or hernia. Bones: No acute fracture or suspicious intraosseous lesion. IMPRESSION: 1. Cholelithiasis. 2. Scattered colonic diverticula without adjacent inflammatory changes to suggest diverticulitis. 3. No hydronephrosis and no renal or ureteral calculi. 4. Additional nonacute findings as described above.
[2025-06-13 10:44] LABS: Alanine Aminotransferase 15 U/L (7-40); Alkaline Phosphatase 106 U/L (46-116); Anion Gap 12 (5-15); BUN/Creatinine Ratio 13.9 (10.0-20.0); Bilirubin, Total 0.4 mg/dL (0.2-1.0); Blood Urea Nitrogen 11 mg/dL (9-23); Calcium 10.2 mg/dL (8.7-10.4); Carbon Dioxide 23 mmol/L (20-31); Chloride 105 mmol/L (98-107); Potassium 3.7 mmol/L (3.5-5.1); Sodium 140 mmol/L (136-145); Total Protein 8.0 g/dL (5.7-8.2)
[2025-06-13 10:45] LABS: Albumin 4.8 g/dL (3.2-4.8); Glucose 109 mg/dL (74-106)
[2025-06-13 10:47] LABS: Lipase 36.0 U/L (12-53)
[2025-06-13] MEDS ORDERED: ZOFR4T PO (11:05)
[2025-06-13] MEDS ORDERED: IBUP-1456 PO (11:05)
[2025-06-13] MEDS: KETOROLAC TROMETH 60MG/2ML VIAL IM ONE (11:14)
[2025-06-13] MEDS: ONDANSETRON ODT 4 MG TAB PO ONE (11:14)
--- NOTE | 2025-06-14 12:22 | ECG ---
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
== END 2025-06-13 11:17 | disposition home or self-care (01) ==
LOC: ER 09:24
DX: K80.20 Calculus of gallbladder without cholecystitis without obstruction (principal); I10 Essential (primary) hypertension; E11.9 Type 2 diabetes mellitus without complications; Z90.49 Acquired absence of other specified parts of digestive tract; Z90.710 Acquired absence of both cervix and uterus; Z98.890 Other specified postprocedural states
CPT/HCPCS: 36415; 74176; 80053; 80320; 83690; 85025; 93005; 96372; 99285; J1885; Q0162